=== PATIENT | male | born 1955 | race Hispanic/Latino ===

== ENCOUNTER 2024-03-19 09:06 | Day surgery (SDC) | payer OTHER ==
[2024-03-18 15:48] LABS: Absolute Basophils 0.1 K/uL (0-0.5); Absolute Eosinophils 0.2 K/uL (0-0.5); Absolute Lymphocytes (CBC) 1.5 K/uL (0.7-4.9); Absolute Monocytes 0.8 K/uL (0.1-1.3); Absolute Neutrophil 6.2 K/uL (1.8-8.0); Eosinophils % 1.8 % (0-4.4); Hematocrit 46.7 % (39.6-49.0); Hemoglobin 15.3 g/dL (13.6-17.9); Lymphocytes % 16.9 % (15.3-44.8); MCH 26.6 pg (27.0-35.0); MCHC 32.8 g/dL (32.0-36.0); MPV 8.2 fL (7.6-11.3); Neutrophils % 71.3 % (41.7-73.7); Nucleated Red Blood Cells % 0.2 % (0-0); Platelets 210 thou/uL (152-406); RBC Red Blood Cell Count 5.77 M/uL (4.33-5.43); Red Cell Distribution Width 15.2 % (12.1-15.2)
[2024-03-18 15:53] LABS: PT Prothrombin Time 12.9 SECONDS (9.5-12.5); PTT, Activated Partial Thromb 32.8 SECONDS (24.3-36.9); Protime INR 1.18
[2024-03-18 15:58] LABS: Anion Gap 8.2 mEq/L (5.0-15.0); Potassium 4.2 mEq/L (3.5-5.1)
[2024-03-19] MEDS: Ringers Lactate 1,000 ML IV ONE (09:38)
[2024-03-19 10:26] VITALS: O2SAT 96
[2024-03-19] MEDS ORDERED: propofoL 200 MG/20 ML VIAL IV ONE (10:33)
[2024-03-19] MEDS ORDERED: LIDOCAINE 1% MPF 2 ML AMPULE ONE (10:33)
[2024-03-19 13:38] VITALS: BP 114/55; TEMP 98.3
--- NOTE | 2024-03-19 14:16 | EKG ---
Test Date: 2024-03-18 Test Time: 15:44:57 [employer]: PREO MEASUREMENT RESULTS: Intervals: Rate: 69 TN: 194 QRSD: 84 QT: 404 QTc: 432 [place]: P: 55 TN: 194 QRS: 83 T: 43 INTERPRETIVE STATEMENTS: Normal sinus rhythm Low voltage QRS Borderline ECG No previous ECG available for comparison Electronically Signed On 03-19-24 14:12:35 CDT by Ruy Contreras
== END 2024-03-19 12:03 | disposition home or self-care (01) ==
LOC: OR 09:06
PROVIDERS: ATTEND Internal Medicine Gastroenterology
PROC: 0DBL8ZX Excision of Transverse Colon, Via Natural or Artificial Opening Endoscopic, Diagnostic (ICD-10-PCS; 2024-03-19)
PROC: 0DBN8ZX Excision of Sigmoid Colon, Via Natural or Artificial Opening Endoscopic, Diagnostic (ICD-10-PCS; 2024-03-19)
PROC: 0DBK8ZX Excision of Ascending Colon, Via Natural or Artificial Opening Endoscopic, Diagnostic (ICD-10-PCS; principal; 2024-03-19 10:30)
DX: R19.5 Other fecal abnormalities (principal); I10 Essential (primary) hypertension; D12.2 Benign neoplasm of ascending colon; D12.5 Benign neoplasm of sigmoid colon; D12.3 Benign neoplasm of transverse colon
CPT/HCPCS: 93005; 85025; 80048; 36415; 85610; 88305; 85730; 45385; J2704; J7120